=== PATIENT | male | born 1980 | race Caucasian/White ===

== ENCOUNTER 2017-06-26 20:02 | Emergency (ER) | payer SELFPAY ==
[2017-06-26] MEDS ORDERED: Ketorolac 60 MG/2 ML SDV IM ONE (21:01)
--- NOTE | 2017-06-26 21:06 | EDM.PDOC ---
ED HPI GENERAL MEDICAL PROBLEM - General Chief Complaint: Respiratory Problem Stated Complaint: CHEST PAINS Time Seen by Provider: 06/26/17 20:50 Source of Information: Reports: Patient History Limitations: Reports: No Limitations - History of Present Illness INITIAL COMMENTS - FREE TEXT/NARRATIVE: 36 yo male 1 ppd smoker with cold sx's developed L anterior pleuritic chest pain about 3 days ago. Has no doctor so has not been to the clinic. No fever or SOB. Tried cough medicine as deep breathing and coughing increase the pain. No recent calf pain or leg swelling. Onset Date: 06/23/17 Duration: Day(s): Location: Reports: Chest Quality: Reports: Sharp, Stabbing Severity: Moderate Improves with: Reports: Rest Worsens with: Reports: Breathing (or coughing) Context: Reports: Other (smoker) Associated Symptoms: Reports: Chest Pain (pleuritic), Cough (chronic from smoking and a little worse due to cold sx's.). Denies: Diaphoresis, Fever/ Chills, Rash, Shortness of Breath Treatments CONTENT ADMINISTRATOR: Reports: Other (see below) (OTC cough med.) - Related Data Allergies Allergy/AdvReac Type Severity Reaction Status Date / Time No Known Allergies Allergy Verified 06/26/17 20:43 Home Meds: Home Meds NK [No Known Home Meds] 06/26/17 [History] Past Medical History - Past Health History Medical/Surgical History: Denies Medical/Surgical History Social & Family History - Tobacco Use Smoking Status *Q: Current Every Day Smoker Years of Tobacco use: 17 Packs/Tins Daily: 1 - Caffeine Use Caffeine Use: Reports: Energy Drinks ED ROS GENERAL - Review of Systems Review Of Systems: See Below Constitutional: Reports: No Symptoms HEENT: Reports: No Symptoms Respiratory: Reports: Pleuritic Chest Pain, Cough. Denies: Shortness of Breath , Wheezing, Sputum, Hemoptysis Cardiovascular: Reports: No Symptoms Endocrine: Reports: No Symptoms GI/Abdominal: Reports: No Symptoms : Reports: No Symptoms Musculoskeletal: Reports: No Symptoms Skin: Reports: No Symptoms Neurological: Reports: No Symptoms ED EXAM, GENERAL - Physical Exam Exam: See Below Exam Limited By: No Limitations General Appearance: Alert, WD/WN, No Apparent Distress Eye Exam: Bilateral Eye: Normal Inspection Ears: Normal External Exam, Normal Canal, Hearing Grossly Normal, Normal TMs Ear Exam: Bilateral Ear: Auricle Normal, Canal Normal, TM normal Nose: Normal Inspection, Normal Mucosa, No Blood Throat/Mouth: Normal Inspection, Normal Lips, Normal Oropharynx, Normal Voice, No Airway Compromise Head: Atraumatic, Normocephalic Neck: Normal Inspection, Supple, Non-Tender Respiratory/Chest: No Respiratory Distress, Lungs Clear, Normal Breath Sounds, No Accessory Muscle Use, Chest Non-Tender. No: Respiratory Distress, Decreased Breath Sounds, Crackles, Rales, Rhonchi, Wheezing, Accessory Muscle Use, Retractions, Prolonged Expiration Cardiovascular: Regular Rate, Rhythm GI/Abdominal: Normal Bowel Sounds, Soft, Non-Tender, No Distention Back Exam: Normal Inspection Extremities: Normal Inspection, Normal Range of Motion, Non-Tender, No Pedal Edema Neurological: Alert, Oriented, CN II-XII Intact, Normal Cognition, No Motor/ Sensory Deficits Psychiatric: Normal Affect, Normal Mood Skin Exam: Warm, Dry, Intact, Normal Color, No Rash Lymphatic: No Adenopathy Course - Vital Signs Last Recorded V/S: Last Vital Signs Temp 36.3 C 06/26/17 20:48 Pulse 87 06/26/17 20:48 Resp 15 06/26/17 20:48 BP 109/63 06/26/17 20:48 Pulse Ox 98 06/26/17 20:48 - Orders/Labs/Meds Meds: Medications Discontinued Medications Generic Name Dose Route Start Last Admin Trade Name Jeromeq PRN Reason Stop Dose Admin Ketorolac Tromethamine 60 mg 06/26/17 21:01 06/26/17 21:11 Toradol IM 06/26/17 21:02 60 mg ONETIME ONE Administration Departure - Departure Time of Disposition: 22:00 Disposition: Home, Self-Care 01 Condition: Good Clinical Impression: Pleurisy - Discharge Information Referrals: PCP,None [Primary Care Provider] - Forms: ED Department Discharge
== END 2017-06-26 22:14 | disposition home or self-care (01) ==
LOC: JP.ED 20:02
DX: R09.1 Pleurisy (principal); F17.210 Nicotine dependence, cigarettes, uncomplicated
CPT/HCPCS: 96372; 99285; J1885; 99283

== ENCOUNTER 2020-12-01 18:02 | Emergency (ER) | payer MEDICAID ==
--- NOTE | 2020-12-01 18:37 | EDM.PDOC ---
ED HPI GENERAL MEDICAL PROBLEM - General Chief Complaint: ENT Problem Stated Complaint: TOOTH ACHE Time Seen by Provider: 12/01/20 18:25 - History of Present Illness INITIAL COMMENTS - FREE TEXT/NARRATIVE: Rhett is a 40-year-old male presenting to the ED for evaluation of dental pain involving tooth #1 for the last month. Patient states has been getting progressively worse. He has been trying to get into a dentist but he does not have insurance and the earliest he can get into an emergency dentist is in 6 weeks. He denies any fever, chills, difficulty with swallowing. The patient has a known fractured tooth and has erosion of tooth #2 as well. Right Upper Tooth/Teeth Pain Score (Numeric/FACES): 7 - Related Data Allergies Allergy/AdvReac Type Severity Reaction Status Date / Time No Known Allergies Allergy Verified 12/01/20 18:28 Home Meds: Home Meds NK [No Known Home Meds] 06/26/17 [History] Past Medical History - Past Health History Medical/Surgical History: Denies Medical/Surgical History Social & Family History - Caffeine Use Caffeine Use: Reports: Energy Drinks ED ROS ENT - Review of Systems Review Of Systems: See Below HEENT: Reports: Dental Pain ED EXAM, ENT - Physical Exam Exam: See Below Exam Limited By: No Limitations General Appearance: Alert, Mild Distress Mouth/Throat: Dental Pain, Dental Tenderness (Tooth #1 and tooth #2), Dental Trauma (Tooth #1 is missing its entire crown causing an open tooth to the pulp), Gum Swelling (Around the base of tooth #1), Other (Tooth #2 has significant dental caries) Head: Atraumatic, Normocephalic. No: Facial Swelling, Facial Tenderness Neck: Normal Inspection. No: Lymphadenopathy (R), Lymphadenopathy (L) Course - Vital Signs Last Recorded V/S: Last Vital Signs Temp 36.6 C 12/01/20 18:15 Pulse 83 12/01/20 18:15 Resp 16 12/01/20 18:15 BP 144/84 H 12/01/20 18:15 Pulse Ox 98 12/01/20 18:15 - Re-Assessments/Exams Free Text/Narrative Re-Assessment/Exam: 12/01/20 18:37 patient has a chronic open fracture of tooth #1 now has gingival swelling at its base. This is likely a developing apical abscess as the pulp is exposed. Tooth #2 has advanced dental caries but no tenderness or swelling around its base. I did put through a referral to the [facility] dental clinic for the patient be seen on 12/03/2020. We will start the patient on clindamycin 300 mg 4 times daily for 7 days and Toradol 10 mg 4 times daily as needed for pain for 5 days. Patient is suitable for discharge in satisfactory condition. Departure - Departure Time of Disposition: 18:34 Disposition: Home, Self-Care 01 Clinical Impression: Dental infection Fractured tooth Qualifiers: Encounter type: initial encounter Fracture type: open Qualified Code(s): S02.5XXB - Fracture of tooth (traumatic), initial encounter for open fracture - Discharge Information Instructions: Tooth Injuries, [id number], Dental Abscess, [id number] Referrals: PCP,None [Primary Care Provider] - Care Plan Goals: We are starting you on clindamycin 300 mg 4 times a day for 7 days. I would also like to put you on Toradol 10 mg 4 times a day as needed for pain control. If taking the Toradol please do not take any Aleve or ibuprofen. I have put through a referral for you to the [facility] dental clinic. Please show up at 8:15 in the morning on December 03 for your evaluation and treatment. Sepsis Event Note (ED) - Focused Exam Vital Signs: Vital Signs Temp Pulse Resp BP Pulse Ox 12/01/20 18:15 36.6 C 83 16 144/84 H 98 - Problem List & Annotations (1) Dental infection SNOMED Code(s): 125002141 Code(s): K04.7 - PERIAPICAL ABSCESS WITHOUT SINUS Status: Acute Priority: Low Current Visit: Yes (2) Fractured tooth SNOMED Code(s): 76958156 Code(s): S02.5XXA - FRACTURE OF TOOTH (TRAUMATIC), INIT FOR CLOS FX Status: Acute Priority: Low Current Visit: Yes Qualifiers: Encounter type: initial encounter Fracture type: open Qualified Code(s): S02.5XXB - Fracture of tooth (traumatic), initial encounter for open fracture - Problem List Review Problem List Initiated/Reviewed/Updated: Yes
== END 2020-12-01 18:49 | disposition home or self-care (01) ==
LOC: JP.ED 18:02
DX: S02.5XXB Fracture of tooth (traumatic), initial encounter for open fracture (principal); K04.7 Periapical abscess without sinus; X58.XXXA Exposure to other specified factors, initial encounter
CPT/HCPCS: 99282